=== PATIENT | male | born 1960 | race Caucasian/White ===

== ENCOUNTER → 2017-11-26 | Day surgery (SDC) | payer BC ==
[~2017-11-26] MED LIST: Bupivacaine 0.25% 10 ML SDV ONE; Lactated Ringers 1,000 ML IV SCH; Lactated Ringers 1,000 ML ONE
== END ==
LOC: CC.SDS 08:39
PROVIDERS: ATTEND Surgery
DX: D17.1 Benign lipomatous neoplasm of skin and subcutaneous tissue of trunk (principal); Z53.8 Procedure and treatment not carried out for other reasons
CPT/HCPCS: J7120

== ENCOUNTER 2023-12-09 08:47 | Day surgery (SDC) | payer BC ==
[2023-12-09] MEDS: Lactated Ringers 1,000 ML IV SCH (09:02)
[2023-12-09] MEDS ORDERED: Propofol 200 MG/20 ML SDV ONE ×2 (09:15)
[2023-12-09] MEDS ORDERED: Lidocaine 2% 20 ML MDV ONE (09:15)
[2023-12-09] MEDS ORDERED: fentaNYL 50 MCG/ML SDV ONE ×2 (09:15)
[2023-12-09] MEDS ORDERED: Ketamine 200 MG/20 ML MDV ONE (09:15)
== END 2023-12-09 10:58 | disposition home or self-care (01) ==
LOC: CC.SDS 08:47
PROVIDERS: ATTEND Family Medicine
DX: Z12.11 Encounter for screening for malignant neoplasm of colon (principal); K21.00 Gastro-esophageal reflux disease with esophagitis, without bleeding; K22.2 Esophageal obstruction; K29.50 Unspecified chronic gastritis without bleeding; K44.9 Diaphragmatic hernia without obstruction or gangrene; R13.10 Dysphagia, unspecified; K29.80 Duodenitis without bleeding; E78.5 Hyperlipidemia, unspecified; N52.9 Male erectile dysfunction, unspecified; Z79.82 Long term (current) use of aspirin; Z79.899 Other long term (current) drug therapy
CPT/HCPCS: 00813; 87081; J2704; J3010; J3490; J7120